=== PATIENT | female | born 1995 | race Caucasian/White ===

== ENCOUNTER 2020-09-11 20:40 | Emergency (ER) | payer MEDICAID ==
[~2020-09-11] VITALS: Ht 165.1 cm; Wt 71.2 kg
[2020-09-11 20:54] VITALS: BP_SYST 121
[2020-09-11] MEDS ORDERED: ONDANSETRON HCL 4 MG/2 ML VIAL IVP ONE ×2 (21:15→22:00)
[2020-09-11] MEDS ORDERED: NACL 0.9% 1,000 ML IV ONE (21:15)
[2020-09-11 21:41] LABS: BASOPHILS # (AUTO) 0.1 K/uL (0.0-0.2); BASOPHILS % (AUTO) 0.5 % (0.0-2.0); HEMATOCRIT 43.2 % (36-48); HEMOGLOBIN 14.9 g/dL (12.0-16.0); LYMPHOCYTES % (AUTO) 9.6 % (20.5-51.5); MEAN CORPUSCULAR HEMOGLOBIN 31 pg (27-31); MEAN CORPUSCULAR HGB CONC 35 % (32-36); MEAN CORPUSCULAR VOLUME 89 fL (79.0-98.0); MONOCYTES # (AUTO) 0.4 K/uL (0.0-1.0); MONOCYTES % (AUTO) 3.4 % (1.7-9.3); NEUTROPHILS % (AUTO) 86.5 % (40.0-70.0); PLATELET COUNT (AUTO) 242 K/uL (130-430); RED BLOOD CELL COUNT(AUTO) 4.86 MIL/uL (4.2-6.2); RED CELL DISTRIBUTION WIDTH 13.3 % (9.0-15.0); WHITE BLOOD COUNT (AUTO) 10.4 K/uL (4.8-10.8)
[2020-09-11 21:44] LABS: CALCIUM 9.1 mg/dL (8.4-11.0); CREATININE 0.64 mg/dL (0.55-1.30)
[2020-09-11 21:48] LABS: POTASSIUM 2.6 mmol/L (3.5-5.1)
[2020-09-11 21:50] LABS: PROTHROMBIN TIME 10.2 SECS (9.5-12.5)
[2020-09-11 21:54] LABS: TOTAL BILIRUBIN 1.3 mg/dL (0.0-1.0)
[2020-09-11] MEDS ORDERED: POTASSIUM CHLORIDE 20 MEQ TAB.PRT.SR PO ONE (22:00)
[2020-09-11] MEDS ORDERED: KCL 20 mEq in NS 1000 mL 1,000 ML IV ONE ×2 (22:00→22:35)
[2020-09-11 23:23] LABS: BILIRUBIN,URINE 1+ (NEGATIVE); BLOOD, URINE NEGATIVE (NEGATIVE); CLARITY/URINE CLEAR (CLEAR); COLOR,URINE YELLOW (YELLOW); GLUCOSE,URINE NEGATIVE (NEGATIVE); KETONES,URINE 3+ (NEGATIVE); LEUKOCYTE ESTERASE ,URINE NEGATIVE (NEGATIVE); NITRITE, URINE NEGATIVE (NEGATIVE); PH,URINE 6.5 (5.0-8.0); PROTEIN URINE 1+ (NEGATIVE)
[2020-09-11 23:33] LABS: BARBITURATE, URINE NEGATIVE (NEG <=200); BENZODIAZEPINE, URINE NEGATIVE (NEG <=150); METHAMPHETAMINES SCREEN,URINE NEGATIVE (NEG <=500); URINE AMPHETAMINE NEGATIVE (NEG <=500); URINE METHADONE NEGATIVE (NEG <=200)
[2020-09-11 23:34] LABS: CANNABINOID, URINE POSITIVE (NEG <=50); COCAINE, URINE NEGATIVE (NEG <=150); OPIATE, URINE NEGATIVE (NEG <=100); PHENCYCLIDINE SCREEN,URINE NEGATIVE (NEG <=25); UR TRICYCLIC ANTIDEPRESSANTS NEGATIVE (NEG <=300); URINE OXYCODONE SCREEN NEGATIVE (NEG <=100); URINE PROPOXYPHENE SCREEN NEGATIVE (NEG <=300)
[2020-09-11 23:54] LABS: BACTERIA,URINE FEW /HPF (None Seen); RBC,URINE 0-3 /HPF (0-3)
[2020-09-12] MEDS ORDERED: PROMETHAZINE INJ.Non-Formulary 25 MG/ML AMP IVP ONE (03:45)
[2020-09-12] MEDS ORDERED: LORazepam 2 MG/ML VIAL IVP ONE (04:00)
[2020-09-12] MEDS ORDERED: LORazepam 2 MG/ML VIAL ONE (04:12)
[2020-09-12 05:33] VITALS: BP_SYST 137
== END 2020-09-12 05:33 | disposition home or self-care (01) ==
LOC: SED 20:40
DX: E87.6 Hypokalemia (principal); E86.0 Dehydration; R53.1 Weakness; R11.2 Nausea with vomiting, unspecified
CPT/HCPCS: 36415; 74176; 80053; 80307; 81000; 81025; 82150; 83690; 85025; 85610; 87086; 87426; 96361; 96365; 96366; 96375 ×2; 99291; 99292; J2060; J2405; J2550; J3480

== ENCOUNTER 2020-12-08 22:42 | Emergency (ER) | payer MEDICAID, SELFPAY ==
[~2020-12-08] VITALS: Ht 165.1 cm; Wt 68.0 kg
[2020-12-08 23:01] VITALS: BP_SYST 126
[2020-12-08] MEDS ORDERED: ONDANSETRON HCL 4 MG/2 ML VIAL IVP ONE (23:15)
[2020-12-08] MEDS ORDERED: NACL 0.9% 1,000 ML IV ONE (23:15)
[2020-12-08 23:46] LABS: BASOPHILS % (AUTO) 0.4 % (0.0-2.0); HEMATOCRIT 39.6 % (36-48); HEMOGLOBIN 13.5 g/dL (12.0-16.0); LYMPHOCYTES # (AUTO) 0.8 K/uL (1.0-5.5); LYMPHOCYTES % (AUTO) 7.4 % (20.5-51.5); MEAN CORPUSCULAR HEMOGLOBIN 31 pg (27-31); MEAN CORPUSCULAR HGB CONC 34 % (32-36); MEAN CORPUSCULAR VOLUME 90 fL (79.0-98.0); MONOCYTES # (AUTO) 0.3 K/uL (0.0-1.0); MONOCYTES % (AUTO) 3.1 % (1.7-9.3); NEUTROPHILS % (AUTO) 89.1 % (40.0-70.0); PLATELET COUNT (AUTO) 258 K/uL (130-430); RED BLOOD CELL COUNT(AUTO) 4.41 MIL/uL (4.2-6.2); RED CELL DISTRIBUTION WIDTH 13.1 % (9.0-15.0); WHITE BLOOD COUNT (AUTO) 11.3 K/uL (4.8-10.8)
[2020-12-09 00:25] LABS: ALBUMIN 4.5 g/dL (3.4-4.8); CALCIUM 8.8 mg/dL (8.4-11.0); TOTAL BILIRUBIN 0.6 mg/dL (0.0-1.0)
[2020-12-09 00:30] LABS: CREATININE 0.64 mg/dL (0.55-1.30)
[2020-12-09] MEDS ORDERED: POTASSIUM CHLORIDE 20 MEQ TAB.PRT.SR PO ONE ×2 (00:45→02:30)
[2020-12-09] MEDS ORDERED: NACL 0.9% 1,000 ML IV ONE (00:45)
[2020-12-09] MEDS ORDERED: METOCLOPRAMIDE HCL 10 MG/2 ML VIAL ONE (01:42)
[2020-12-09] MEDS ORDERED: DIPHENHYDRAMINE INJ 50 MG/ML VIAL ONE (01:43)
[2020-12-09] MEDS ORDERED: METOCLOPRAMIDE HCL 10 MG/2 ML VIAL IVP ONE (01:45)
[2020-12-09] MEDS ORDERED: DIPHENHYDRAMINE INJ 50 MG/ML VIAL IVP ONE (01:45)
[2020-12-09 02:00] LABS: CALCIUM 8.2 mg/dL (8.4-11.0); CREATININE 0.56 mg/dL (0.55-1.30); POTASSIUM 3.1 mmol/L (3.5-5.1)
[2020-12-09] MEDS ORDERED: POTASSIUM CHLORIDE 20 MEQ TAB.PRT.SR ONE (02:37)
[2020-12-09 02:50] VITALS: BP_SYST 125
== END 2020-12-09 02:50 | disposition home or self-care (01) ==
LOC: SED 22:42
DX: E87.6 Hypokalemia (principal); R11.2 Nausea with vomiting, unspecified; R19.7 Diarrhea, unspecified; R10.9 Unspecified abdominal pain; Z20.822 Contact with and (suspected) exposure to COVID-19
CPT/HCPCS: 36415; 80048; 80053; 83690; 84702; 85025; 87426; 96361; 96374; 96375; 99284; J1200; J2405; J2765; J7030 ×2

== ENCOUNTER 2021-02-13 13:33 | Emergency (ER) | payer MEDICAID, SELFPAY ==
[~2021-02-13] VITALS: Ht 162.6 cm; Wt 68.0 kg
[2021-02-13 13:52] VITALS: BP_SYST 128
[2021-02-13] MEDS ORDERED: NACL 0.9% 1,000 ML IV ONE ×2 (14:30)
[2021-02-13] MEDS ORDERED: MAG HYDROX/AL HYDROX/SIMETH 30 ML, DICYCLOMINE HCL 20 MG, LIDOCAINE VISCOUS 2% 15ML (PO... PO ONE ×6 (14:30→16:00)
[2021-02-13 14:51] LABS: BASOPHILS % (AUTO) 0.3 % (0.0-2.0); HEMOGLOBIN 13.3 g/dL (12.0-16.0); LYMPHOCYTES # (AUTO) 0.7 K/uL (1.0-5.5); MEAN CORPUSCULAR HEMOGLOBIN 31 pg (27-31); MEAN CORPUSCULAR HGB CONC 34 % (32-36); MEAN CORPUSCULAR VOLUME 90 fL (79.0-98.0); MONOCYTES # (AUTO) 0.3 K/uL (0.0-1.0); MONOCYTES % (AUTO) 2.5 % (1.7-9.3); NEUTROPHILS # (AUTO) 12.3 K/uL (1.8-7.7); NEUTROPHILS % (AUTO) 92.2 % (40.0-70.0); PLATELET COUNT (AUTO) 217 K/uL (130-430); RED BLOOD CELL COUNT(AUTO) 4.34 MIL/uL (4.2-6.2); RED CELL DISTRIBUTION WIDTH 13.5 % (9.0-15.0); WHITE BLOOD COUNT (AUTO) 13.4 K/uL (4.8-10.8)
[2021-02-13 14:58] LABS: BILIRUBIN,URINE NEGATIVE (NEGATIVE); BLOOD, URINE NEGATIVE (NEGATIVE); CLARITY/URINE CLEAR (CLEAR); COLOR,URINE YELLOW (YELLOW); GLUCOSE,URINE NEGATIVE (NEGATIVE); KETONES,URINE 3+ (NEGATIVE); LEUKOCYTE ESTERASE ,URINE NEGATIVE (NEGATIVE); NITRITE, URINE NEGATIVE (NEGATIVE); PH,URINE 8.5 (5.0-8.0); PROTEIN URINE NEGATIVE (NEGATIVE); UROBILINOGEN,URINE 0.2 (0.2-1.0)
[2021-02-13 15:03] LABS: CALCIUM 9.1 mg/dL (8.4-11.0); CREATININE 0.76 mg/dL (0.55-1.30); POTASSIUM 3.3 mmol/L (3.5-5.1)
[2021-02-13 15:08] LABS: ALBUMIN 4.4 g/dL (3.4-4.8); TOTAL BILIRUBIN 0.5 mg/dL (0.0-1.0)
[2021-02-13] MEDS ORDERED: MAG HYDROX/AL HYDROX/SIMETH 30 ML, LIDOCAINE VISCOUS 2% 15ML (PO) 10 ML, DICYCLOMINE HC... PO ONE ×3 (16:00)
[2021-02-13] MEDS ORDERED: ONDANSETRON HCL 4 MG/2 ML VIAL IVP ONE (16:00)
[2021-02-13] MEDS ORDERED: OMEP20CA15 PO (20:20)
[2021-02-13] MEDS ORDERED: METO-290 PO (20:20)
[2021-02-13 20:40] VITALS: BP_SYST 126
== END 2021-02-13 20:40 | disposition home or self-care (01) ==
LOC: SED 13:33
DX: K52.9 Noninfective gastroenteritis and colitis, unspecified (principal)
CPT/HCPCS: 36415; 74176; 76376; 80053; 81003; 83690; 85025; 96361; 96374; 99285; J2001; J2405

== ENCOUNTER 2021-08-20 21:20 | Emergency (ER) | payer MEDICAID ==
[~2021-08-20] VITALS: Ht 165.1 cm; Wt 68.0 kg
[~2021-08-20 21:20] MED LIST: METO-290 PO; OMEP20CA15 PO
[2021-08-20 21:26] VITALS: BP_SYST 127
[2021-08-20] MEDS ORDERED: MORPHINE 4 MG INJ. 4 MG/ML VIAL IVP ONE (22:45)
[2021-08-20] MEDS ORDERED: NACL 0.9% 1,000 ML IV ONE (22:45)
[2021-08-20] MEDS ORDERED: LORazepam 2 MG/ML VIAL IVP ONE (22:45)
[2021-08-20 22:52] LABS: BASOPHILS % (AUTO) 0.4 % (0.0-2.0); HEMATOCRIT 39.5 % (36-48); HEMOGLOBIN 13.5 g/dL (12.0-16.0); LYMPHOCYTES # (AUTO) 0.6 K/uL (1.0-5.5); LYMPHOCYTES % (AUTO) 4.7 % (20.5-51.5); MEAN CORPUSCULAR HEMOGLOBIN 31 pg (27-31); MEAN CORPUSCULAR HGB CONC 34 % (32-36); MEAN CORPUSCULAR VOLUME 92 fL (79.0-98.0); MONOCYTES # (AUTO) 0.3 K/uL (0.0-1.0); MONOCYTES % (AUTO) 2.8 % (1.7-9.3); NEUTROPHILS # (AUTO) 11.2 K/uL (1.8-7.7); NEUTROPHILS % (AUTO) 92.1 % (40.0-70.0); PLATELET COUNT (AUTO) 211 K/uL (130-430); RED BLOOD CELL COUNT(AUTO) 4.32 MIL/uL (4.2-6.2); RED CELL DISTRIBUTION WIDTH 13.9 % (9.0-15.0); WHITE BLOOD COUNT (AUTO) 12.1 K/uL (4.8-10.8)
[2021-08-20 23:14] LABS: CALCIUM 9.6 mg/dL (8.4-11.0); CREATININE 0.81 mg/dL (0.55-1.30); POTASSIUM 3.2 mmol/L (3.5-5.1)
[2021-08-20 23:15] LABS: BILIRUBIN,URINE NEGATIVE (NEGATIVE); BLOOD, URINE NEGATIVE (NEGATIVE); CLARITY/URINE CLEAR (CLEAR); COLOR,URINE YELLOW (YELLOW); GLUCOSE,URINE NEGATIVE (NEGATIVE); KETONES,URINE 1+ (NEGATIVE); LEUKOCYTE ESTERASE ,URINE NEGATIVE (NEGATIVE); NITRITE, URINE NEGATIVE (NEGATIVE); PROTEIN URINE 1+ (NEGATIVE); UROBILINOGEN,URINE 0.2 (0.2-1.0)
[2021-08-20 23:26] LABS: ALBUMIN 4.5 g/dL (3.4-4.8); TOTAL BILIRUBIN 0.8 mg/dL (0.0-1.0)
[2021-08-20 23:33] LABS: BACTERIA,URINE FEW /HPF (None Seen); MUCUS,URINE None Seen /LPF (None Seen); RBC,URINE NONE SEEN /HPF (0-3); WBC,URINE 0-3 /HPF (0-3)
[2021-08-21] MEDS ORDERED: LOPE2CAP PO (00:12)
[2021-08-21] MEDS ORDERED: PROM25SU57 RC (00:12)
[2021-08-21] MEDS ORDERED: PHE25 PO (00:12)
[2021-08-21 00:29] VITALS: BP_SYST 108
== END 2021-08-21 00:29 | disposition home or self-care (01) ==
LOC: SED 21:20
DX: K52.9 Noninfective gastroenteritis and colitis, unspecified (principal); E86.0 Dehydration; Z79.899 Other long term (current) drug therapy
CPT/HCPCS: 36415; 80053; 81000; 81025; 83690; 85025; 96361; 96374; 96375; 99284; J2060; J2270; J7030

== ENCOUNTER 2023-09-08 14:54 | Emergency (ER) | payer MEDICAID ==
[~2023-09-08] VITALS: Ht 165.1 cm; Wt 96.2 kg
[2023-09-08 15:17] VITALS: BP_SYST 123; PULSE 83; RESP 18; TEMP 97.2; O2SAT 97
[2023-09-08 16:56] VITALS: BP_SYST 133; PULSE 84; RESP 19; TEMP 98.1; O2SAT 99
== END 2023-09-08 16:55 | disposition home or self-care (01) ==
LOC: SED 14:54
DX: O36.8130 Decreased fetal movements, third trimester, not applicable or unspecified (principal); Z3A.30 30 weeks gestation of pregnancy; Z79.899 Other long term (current) drug therapy
CPT/HCPCS: 99284